=== PATIENT | female | born 1965 | race Caucasian/White ===

== ENCOUNTER → 2017-11-06 | Outpatient (CLI) | payer BC ==
[~2017-11-06] MED LIST: IOPAMIDOL (ISOVUE-300) 100 ML BTL ONE
== END ==
LOC: CIMAGING 13:51
PROVIDERS: ATTEND Internal Medicine
DX: S22.41XA Multiple fractures of ribs, right side, initial encounter for closed fracture (principal); J90 Pleural effusion, not elsewhere classified; J98.11 Atelectasis; R91.8 Other nonspecific abnormal finding of lung field; Y93.9 Activity, unspecified
CPT/HCPCS: 71260-PO; Q9967

== ENCOUNTER → 2018-10-26 | Outpatient (CLI) | payer BC | LOC: FIMAGING 12:39 | PROVIDERS: ATTEND Registered Nurse | DX: E04.2 Nontoxic multinodular goiter (principal); I77.810 Thoracic aortic ectasia; Z90.49 Acquired absence of other specified parts of digestive tract | CPT/HCPCS: Q9967 ==